=== PATIENT | female | born 1970 | race Caucasian/White ===

== ENCOUNTER → 2019-03-28 | Outpatient (CLI) | payer BC, SELFPAY ==
[~2019-03-28] MED LIST: SYNT100T PO
--- NOTE | 2019-03-28 14:26 | RADONC ---
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 Status post treatment in 2004, including surgery, chemotherapy and radiation. She now has evidence of painful bone metastases, as well as subcutaneous metastasis and probable liver metastasis. She is referred for evaluation of local regional palliative radiotherapy to the left acetabular region and the proximal femur for control of pain and hopefully to prevent a future pathologic fracture. STAGE: IV ICD-10 CODE: C50.811; and C79.2. ECOG PERFORMANCE STATUS: 0. HISTORY OF PRESENT ILLNESS: The patient is a 48-year-old female whose history of this illness actually began back in 2004 when she was diagnosed as having a mixed lobular and ductal carcinoma involving the right breast. Initial staging studies revealed an abnormality of the right breast at the 6 o'clock position and at the 4 o'clock position. These areas were biopsied and shown to represent an infiltrating ductal carcinoma and lobular carcinoma. She completed her diagnostic studies and her tumors were noted to be located in multiple areas of the right breast, hence multiple overlapping areas (ICD-10 code 50.811). In 2004, she underwent a right mastectomy for a stage II B cancer with two separate lesions and DCIS, LCIS. Two positive lymph nodes were noted with extranodal extension into the axillary fat tissue, as well as positive deep margins. She underwent a prophylactic mastectomy involving the left breast. Thereafter, she was treated with aggressive chemotherapy and a year of Herceptin for her positive HER2/lyla status. She received radiation therapy postoperatively to the chest wall and presumably for peripheral lymphatics. She had also received Arimidex from October 2005 through April 2012. In a recent evaluation, multiple nodules were discovered in the scalp area, which the patient noticed. She had no other significant symptoms with the exception of some intermittent left hip pain, which has progressively worsened. The scalp nodule or at least one of the scalp nodules was removed and it was shown to be metastatic cancer consistent with her primary breast cancer. Her left hip pain progressed to the point where she is complaining of pain which can get as high as an 8/10. She saw Dr. Burroughs from orthopedics who did not feel the need to do immediate prophylactic stabilization surgically but recommended a course of palliative local regional radiotherapy. She thusly is referred today for evaluation of local regional palliative radiotherapy for her secondary neoplasm. which is metastatic to bone (ICD-10 code C79.51). PAST MEDICAL HEALTH: She had knee surgery in the past and bilateral mastectomy, see history of present illness. ALLERGIES: NO KNOWN DRUG ALLERGIES. MEDICATIONS: - Arimidex 1 mg tablet once daily - Synthroid 88 mcg tablets 1 tablet p.o. daily - Tramadol 50 mg tablets 1 tablet q.6 h as needed for pain - Tums orally as needed - vitamin D 50,000 international units capsules q. Week FAMILY HISTORY OF CANCER: She had a mother who was diagnosed with ovarian cancer and an aunt who was diagnosed with colon cancer. Her grandmother was also diagnosed with breast cancer. SOCIAL HISTORY: Alcohol social. Recreational drugs denied. Smoking history denied. 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 REVIEW OF SYSTEMS: Her primary symptom is clearly that of pain involving the left hip. Respiratory: Denies coughing, dyspnea, hemoptysis, hiccups, pleuritic pain or wheezing. Psychiatric: Denies delusions, hallucinations, depression, euphoria or major mood swings. Neurologic: Denies disorientation, dizziness, gait issues, headaches, insomnia, memory loss, neuropathy, motor dysfunction, paralysis, seizures, sensory problems or strokes. Neck: Denies masses, muscle weakness, pain, decrease in range of motion or swelling. Musculoskeletal: Denies arthritis but she does have severe left hip pain, which is intensifying. She denies muscle weakness but decreased range of motion involving the left lower extremity. Integumentary: Denies alopecia, blisters, bruising, dry skin, facial burning, difficulty with fingernails or toenails, photosensitivity, pruritus, rashes or urticaria. Head: Denies alopecia. Genitourinary: Denies dysuria, frequency, genital masses, hematuria, incontinence, nocturia, renal stone disease, sexual dysfunction, urgency, change in urine color, vaginal discharge or bleeding, vaginal spotting. Gastrointestinal: Denies changes in bowel habits, constipation, diarrhea. She does have heartburn and dyspepsia for which at times she will take at Tums. She denies hematemesis, hematochezia, hemorrhoids, melena, GI bleeding. nausea. She does complain of pain in the left hip. Denies early satiety or vomiting. HEENT: Denies ear pain, epistaxis, esophagitis, hearing issues, mouth dryness, oral bleeding, otitis, sinusitis, sputum production, stomatitis or alteration of taste. She also denies tinnitus. Endocrine: Denies diabetes or hot flashes. She is on thyroid supplementation. Constitutional: She complains of some fatigue but denies any decrease in appetite, fever, lethargy, significant malaise, night sweats, rigors, chills or recent weight change. Cardiovascular: She denies arrhythmias, chest pain, dyspnea, edema, orthopnea or palpitations. Breasts: She is status post bilateral mastectomy. EXAMINATION FINDINGS: Vitals: Height 66, weight 192.8, temperature 98.4, pulse 81, respirations 18, systolic 127, diastolic 182, O2 saturation 96% on room air. HEENT: Normocephalic. EOMs intact. PERRLA. Fundi benign. Lymphatics: No palpable peripheral lymphadenopathy appreciated in the cervical, supraclavicular, axillary or inguinal lymph node chains. Lungs are clear to auscultation and percussion. Heart: Regular without murmurs. Abdomen: Without evidence of hepatomegaly, masses or deep abdominal tenderness. Extremities: Without cyanosis, clubbing or edema. She has percussive tenderness in the left periacetabular region. Neurologic: Examination grossly physiologic and nonfocal. IMPRESSION: 1. History of right breast carcinoma, now with evidence of metastases to the left hip with significant osteopenia around the periacetabular region. Plan of radiotherapy: Local regional palliative radiotherapy is recommended to hopefully prevent a pathologic fracture and to control pain. We recommend a course of approximately 3000 cGy administered in 10 fractions. Prior to treatment delivery, localization will be accomplished upon our CT simulator and treatment portals defined by the use of multi leaf collimators. The indications, possible side effects, as well as alternatives to radiotherapy have been explained in detail to the patient and her , who is in attendance at this consultation. They understand and are willing to proceed as outlined. Thank you for referring this very fine patient to us and allowing us the opportunity of participation in her overall management. ALMAS
== END ==
LOC: M ONCR 10:36
PROVIDERS: ATTEND Radiology Radiation Oncology
DX: C50.811 Malignant neoplasm of overlapping sites of right female breast (principal); C79.2 Secondary malignant neoplasm of skin

== ENCOUNTER 2019-04-16 14:48 | Outpatient (RCR) | payer BC ==
--- NOTE | 2019-04-07 07:54 | RADONC ---
RADIATION ONCOLOGY SIMULATION NOTE DATE: 04/03/2019 CHART NUMBER: [id number] Ms. Solis was taken to the CT scan for CT simulation of her left hip field. CT was accomplished without difficulty or discomfort. Radiation treatment planning is underway and radiation treatments are scheduled to begin on Sunday. An immobilization device was created without difficulty or discomfort. It will be used throughout the course of treatment. I was physically present throughout the course of CT simulation. Dr. Parikh in our department had applied for insurance authorization for treatment, which came through this morning at approximately 9 o'clock. I contacted the patient and scheduled her for simulation immediately this afternoon so that radiation would not be unduly delayed.
--- NOTE | 2019-04-08 10:45 | RADONC ---
RADIATION ONCOLOGY PROGRESS NOTE DATE: 04/07/2019 CHART NUMBER: [id number] Ms. Solis was taken to linear accelerator today for her first fraction of radiation to her left hip. It was tolerated without difficulty or discomfort. REVIEW OF SYSTEMS: The patient's review of systems continues to be positive for left hip pain, but is otherwise noncontributory. She denies nausea, vomiting, fevers, chills, night sweats, diplopia, headaches, anxiety or depression, anorexia, weight loss, visual disturbances, chest pain, urinary or bowel difficulties, bone pain, or neurological problems. PHYSICAL EXAMINATION: Clearly the patient's skin showed no evidence of radiation change present as this was her first fraction of treatment. Her physical exam also is otherwise unchanged. Ms. Solis tolerated her treatment well and radiation will continue as scheduled.
--- NOTE | 2019-04-16 06:31 | RADONC ---
RADIATION ONCOLOGY PROGRESS NOTE DATE: 04/14/2019 CHART #: [id number] Ms. Solis is presently at a dose of 1800 cGy to her left hip and is tolerating treatments quite well at this point with no difficulties related to her radiation therapy. She has no increased bone pain or other problems. REVIEW OF SYSTEMS: The patient's review of systems is noncontributory. Denies nausea, vomiting, fevers, chills, night sweats, diplopia, headaches, anxiety or depression, anorexia, weight loss, visual disturbances, chest pain, urinary or bowel difficulties, bone pain, or neurological problems. PHYSICAL EXAMINATION: The patient's skin is in good condition with no evidence of radiation change present. There is no moist or dry desquamation. The remainder of her physical exam remains unchanged. Ms. Solis is tolerating treatments quite well and radiation will continue as scheduled.
== END 2019-04-19 ==
LOC: M ONCR 14:48
PROVIDERS: ATTEND Radiology Radiation Oncology
DX: C79.51 Secondary malignant neoplasm of bone (principal)

== ENCOUNTER 2019-04-22 07:50 | Outpatient (RCR) | payer BC ==
--- NOTE | 2019-04-22 09:18 | RADONC ---
RADIATION ONCOLOGY TREATMENT SUMMARY DATE: 04/22/2019 DIAGNOSIS: Metastatic breast CA. HISTORY OF PRESENT ILLNESS: Ms. Solis is a 48-year-old, pleasant female, who has a diagnosis of infiltrating ductal carcinoma of the right breast Stage II A in April 2005. She had ER positive, HER2 positive breast cancer. She was treated with chemotherapy and then later she had mastectomy in 2016. She developed metastatic disease in the left femur and started palliative radiation therapy to the left femur. So far, she completed palliative radiation therapy with dose of 3000 cGy in 10 fractions. Her treatment was uneventful. She tolerated treatment without any significant side effect. Her pain scale at this time is 0, without any medication. She was advised continued therapy with the physicians involved and she was also to return here for followup.
== END 2019-05-20 ==
LOC: M ONCR 07:50
PROVIDERS: ATTEND Radiology Radiation Oncology
DX: C79.51 Secondary malignant neoplasm of bone (principal)

== ENCOUNTER → 2019-05-30 | Outpatient (CLI) | payer BC, SELFPAY ==
--- NOTE | 2019-06-02 16:29 | RADONC ---
RADIATION ONCOLOGY FOLLOWUP NOTE DATE: 05/30/2019 CHART NUMBER: [id number] DIAGNOSIS: Right breast cancer. STAGE: IV, metastatic. ECOG PERFORMANCE STATUS: 0 FOLLOWUP NOTE: Ms. Solis is a very pleasant 48-year-old white female with the diagnosis of metastatic breast cancer who is presenting to us today for routine followup visit 1 month post completion of palliative radiation therapy to her left hip. The patient presents today reporting that she is doing quite well with no complaints at this time related to her radiation therapy or disease. She has no urinary or bowel difficulties and no bone pain at this time. Her skin has healed nicely. REVIEW OF SYSTEMS: The patient's review of systems is noncontributory. Denies nausea, vomiting, fevers, chills, night sweats, diplopia, headaches, anxiety or depression, anorexia, weight loss, visual disturbances, chest pain, urinary or bowel difficulties, bone pain, or neurological problems. PHYSICAL EXAMINATION: The patient's skin shows some tanning present but overall is in good condition. The remainder of her physical exam remains unchanged. Ms. Solis has tolerated treatments quite well and radiation will continue as scheduled. The patient is being followed closely by her medical oncologist, Dr. Hernandez, and is being seen on a weekly basis. In light of that, I am discharging her from our followup except on a p.r.n. basis. cc: Burton Hernandez MD
== END ==
LOC: M ONCR 11:13
PROVIDERS: ATTEND Radiology Radiation Oncology
DX: Z08 Encounter for follow-up examination after completed treatment for malignant neoplasm (principal); C50.811 Malignant neoplasm of overlapping sites of right female breast; C79.51 Secondary malignant neoplasm of bone

== ENCOUNTER → 2020-09-21 | Outpatient (CLI) | payer BC ==
[~2020-09-21] MED LIST changes: +B-COTAB10 PO; +CALC1TAB63 PO; +CALTAB PO; +LETR2.5T2 PO; +LEVO100T5 PO; +XALA0.007 OP
--- NOTE | 2020-09-22 11:58 | ECHO ---
DATE OF PROCEDURE: 09/21/2020 Age: 49 Gender: Female Height: 66 inches Weight: 195 pounds Body surface area: 1.98 m2 PATIENT LOCATION: Outpatient. REFERRING PHYSICIAN: Jaylon Jones M.D. INDICATION: Potentially cardiotoxic chemotherapy. MEASUREMENTS: 2D Measurements: RV 3.2 cm LV 3.7 cm Septum 1.1 cm Posterior wall 1.1 cm Aortic Root 3.2 cm LA 3.6 cm LVEF 65% Doppler Measurements: AV 1.08 m/s LVOT 0.8 m/s LVOT diameter 2.0 cm MV-E 82, A 63, E/A ratio 1.3 Early mitral deceleration time 148 msec E prime medial 5.9, A prime medial 9, E prime lateral 7.3 Average E/E prime ratio 12.4/PCWP 17.3 mmHg PV Could not be visualized well RVSP 21 mmHg IVC 1.7 cm COMMENTS: Normal sinus rhythm without intraventricular conduction disturbance. Slightly challenging study in light of the patients body habitus, but diagnostically useful information was still obtained. M-mode and two-dimensional echocardiography was performed with pulse, continuous wave, color flow, and tissue Doppler studies. Normal left ventricular size, wall thickness, and wall motion. Normal left atrial size and Doppler assessment of LV diastolic function and estimated mean left atrial pressure. Normal right heart chamber sizes and motion and estimated pulmonary arterial pressure. Normal IVC size and collapse against an elevated central venous pressure. Normal aortic dimensions. Three equal size aortic cusps with no stenosis or insufficiency. Normal appearing mitral valve apparatus and leaflet excursion with no posterior systolic buckling. Very mild posterior mitral insufficiency (physiologic). Normal appearing tricuspid valve with trace insufficiency (physiologic). No apparent intracardiac mass or pericardial effusion. MTDD
== END ==
LOC: M CARPUL 11:10
PROVIDERS: ATTEND Internal Medicine Hematology & Oncology
DX: C50.919 Malignant neoplasm of unspecified site of unspecified female breast (principal)

== ENCOUNTER → 2020-12-20 | Outpatient (CLI) | payer BC ==
[~2020-12-20] MED LIST changes: +PROC10TA5 PO
== END ==
LOC: M CARPUL 11:37
PROVIDERS: ATTEND Internal Medicine Medical Oncology
DX: C50.811 Malignant neoplasm of overlapping sites of right female breast (principal); Z85.3 Personal history of malignant neoplasm of breast; I35.0 Nonrheumatic aortic (valve) stenosis

== ENCOUNTER → 2021-03-22 | Outpatient (CLI) | payer BC ==
[~2021-03-22] MED LIST changes: -PROC10TA5 PO
--- NOTE | 2021-03-22 21:40 | ECHO ---
ECHOCARDIOGRAM DATE OF PROCEDURE: 03/22/2021 Age: Gender: Height: 168 cm Weight: 92 kg REFERRING PHYSICIAN: Dr. Bruton Hernandez INDICATION: Chemotherapy, breast cancer. MEASUREMENTS: IVS 1.0 LV 5.0 LVPW 1.0 LA - 3.2 Aorta 3.6 Mitral E-wave velocity 76, A wave 57 E prime septal 7.6 E prime lateral 9.5 FINDINGS: The study is of acceptable technical quality. Underlying sinus rhythm. Significant attenuation noted from breast implants. Left ventricle is normal size and normal systolic function with estimated EF 60%-65%. I do not appreciate any segmental wall motion abnormalities. Right ventricle also has normal size and systolic function. Both atria appear normal. Aortic, mitral, tricuspid, and pulmonic valves were all reasonably well seen and appear normal. No pericardial effusion is noted. Inferior vena cava is normal size and appropriately collapses with inspiration. Aortic root, visualized segment of aortic arch, and abdominal aorta all appear normal. DOPPLER INTERROGATION: Reveals competent aortic valve. There is trace mitral, trace tricuspid, and trace pulmonic insufficiency. Calculated pulmonary artery pressure is within normal limits.. Mitral inflow pattern and tissue Doppler imaging of mitral annulus revealed probably normal diastolic function, even though tissue Doppler velocities are mildly reduced. CONCLUSIONS: 1. Study is of acceptable technical quality. Underlying sinus rhythm. 2. Normal LV size with normal LV systolic and probably also diastolic function. 3. No significant valvular disease. 4. Normal central venous pressure and normal pulmonary artery pressure.
== END ==
LOC: M CARPUL 13:41
PROVIDERS: ATTEND Internal Medicine Medical Oncology
DX: C50.811 Malignant neoplasm of overlapping sites of right female breast (principal); Z85.3 Personal history of malignant neoplasm of breast

== ENCOUNTER → 2021-04-01 | Outpatient (CLI) | payer BC ==
--- NOTE | 2021-04-01 15:27 | RADONC.CN ---
Radiation Oncology Hx/Consult Radiation Oncology Consult Date of Service: Apr 01, 2021 Pt Identifier Yessenia Solis is a 50 year old female with bone-predominant metastatic ER/CT- HER2+ breast cancer, originally diagnosed in 2019, currently on herceptin/perjeta. She is seen today for concern of recrudescent scalp lesions concerning for metastases, one of which on the vertex scalp was recently biopsied and proven mBC. Similar scalp lesions heralded her metastatic progression in 2019. She is seen for consideration of RT and a discussion of next steps in management. Diagnosis/Treatment History Oncologic History Patient was diagnosed with right breast cancer in 2004 stage IIB, 2 LN+ LISA+ ER/CT/HER2+ She had mastectomy, chemotherapy and PMRT. She completed 6 years of Arimidex in 2011. In 2018 she noted the development of small lumps on her scalp, biopsy was positive for ER/CT- HER2+ breast cancer. She also had left hip pain contemporaneously and was found on staging imaging to have bone metastases, including in the painful hip. She received 30 Gy in 10 fractions palliative RT to the left hip 04/07/19-04/22/19. She was started on taxol/herceptin/perjeta and her scalp lesions subsided. 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 In September 2019 she had left hip arthroplasty. In November 2020 she had negative MRI brain, cervical spine MRI which showed largely stable appearing metastases, and a bone scan which demonstrated improvement in uptake compared to May 2019 study. In January 2021 she noted recrudescent scalp lesions, which were similar to those that heralded her metastatic progression in 2019. In February 2021 she had biopsy of a left parietal scalp lesion which was only a mole, and another biopsy of a lesion on the vertex scalp which returned metastatic breast cancer. She then underwent a repeat bone scan with stable uptake in the sternum and left clavicle as well as conventional CT scans which did not demonstrate progression in any visceral site. She did also have MRI T and L-S spine for concern of some neuropathic symptoms which showed multilevel metastatic disease, some with increased STIR signal suggestive of active lesions NB T12 spinous process, L2 body and sacrum. Interval History Yessenia notes that she has discovered several additional small cutaneous nodules on the scalp. Unsure if they have grown since detection. She has no bone pain at this time. She has preserved appetite and energy. Past Medical History: Hypothyroidism Past Surgical History: BL hip replacements Family History: Mother ovarian cancer Social History: Never smoker Does not currently drink Allergies / Meds Allergies: Coded Allergies: No Known Allergies (Unverified , 05/28/20) Home Meds Reported Medications Latanoprost (Xalatan) 0.005% 2.5ML Drops, 1 DROP OP QPM for 30 Days, #3 ML 02/20/20 Vitamin B Complex/Folic Acid (B-Complex Tablet) 0.4 Mg Tablet, 1 TAB PO DAILY for 30 Days, #30 TAB 02/20/20 Calcium Carb/D3/Magnesium/Zinc (Guilherme Mag Zinc-D Tablet) 1 Each Tablet, 1 TAB PO, TAB 02/20/20 Levothyroxine Sodium (Synthroid) 100 Mcg Tablet, 1 TAB PO DAILY for 30 Days, #30 TAB 03/28/19 Discontinued Scripts Calcium Carbonate/Vitamin D3 (Calcium 600-Vit D3 400 Tablet) 1 Each Tablet, 2 TAB PO DAILY for 30 Days, #60 TAB 5 Refills Prov:ISSA HOOD MD 04/08/20 Letrozole (Letrozole) 2.5 Mg Tablet, 1 TAB PO DAILY for 90 Days, #90 TAB 3 Refills Prov:ISSA HOOD MD 03/19/20 Review of Systems Constitutional: Denies: Fatigue, Weight Loss Eyes: Denies: Pain HEENT: Denies: Head Aches Skin: Reports: Lesions Pulmonary: Denies: Dyspnea Cardiovascular: Denies: Chest Pain Gastrointestinal: Denies: Abdominal Pain Musculoskeletal: Denies: Neck pain, Back pain Neurological: Denies: Weakness, Numbness Psych: Reports: Mood Normal Vital Signs Ht 66" Wt 200 lbs BMI 32 T 97.5 P 83 RR 16 BP 138/82 O2 100% Pain 0 Fatigue 0 General Exam: Alert, Cooperative, No Acute Distress Eye Exam: PERRLA, EOMI ENT EXAM: Other ENT (On the vertex scalp there is a healed biopsy site, no surounding nodularity. On the left parietal scalp there is a healed biopsy site, inferior to this there is a 0.2 cm raised lesion, firm/nontender. In the inferior midline occipital region there is another 0.3 cm similar nodular lesion firm/nontender. On the right lateral scalp above the right ear there is a 3rd like lesion 0.3 cm firm/non-tender) Neck Exam: Supple; Negative: Lymphadenopathy Chest Exam: Clear to auscultation Heart Exam: Rate Normal Abdomen Exam: Soft Extremity Exam: Negative: Edema Neuro Exam: Normal Gait, Normal Speech, Cranial Nerves 3-12 NL Psych Exam: Mental status NL Diagnostic and Laboratory Diagnostic Review Radiologic images, relevant labs and pathology reports were personally reviewed and discussed with Ms. Solis. Assessment and Plan Impression Ms. Solis is a 50 year old female with a history of bone-predominant metastatic ER/CT- HER2+ breast cancer, originally diagnosed in 2019, currently on herceptin/perjeta. She is seen today for concern of recrudescent scalp lesions concerning for metastases, one of which on the vertex scalp was recently biopsied and proven mBC. Similar scalp lesions heralded her metastatic progression in 2019. She is seen for consideration of RT and a discussion of next steps in management. Stage Breast cancer stage IV Performance Status ECOG 0 Plan We had an extensive discussion with Ms. Solis regarding the diagnosis at hand and available therapeutic options. I reviewed her recent imaging; the bone scan seems to under-represent the extent of disease evident on the recent MRIs of the spine. Whether this represents that the lesions are quiescent on systemic therapy, or merely non-blastic in nature is an open question. I am concerned that there is increased soft tissue signal in some of the spinal lesions, this generally means active cancer. With respect to the body CT scans recently done, she does not appear to have any disease evidence in visceral organs. With respect to the biopsy-proven vertex scalp lesion, other similar scalp lesions she brought to my attention today, and suggestion of active metastatic disease in the thoraco-lumbar spine it is likely that her situation is district representative of multifocal progression on herceptin/perjeta, which if proven would necessitate a change in systemic therapy, possibly addition of cytotoxic chemo to halt progression. If there is indeed multifocal progression, then I would not advocate for any RT at this time, rather I would reserve the option for sites of symptomatic progression. To ascertain whether she has active disease in the bone or elsewhere, I will obtain a PET-CT and call her to discuss the result. On the off chance that the PET-CT is negative, then she can continue herceptin/perjeta until more marked progression, even in this scenario, I would not advocate for RT to the scalp as the lesions there are unimpressive and not bothersome. If they were to grow further or cause her a burden, then we could palliate them with RT easily. After discussing the risks, benefits and alternatives to radiation therapy, Ms. Solis was amenable to pursuing a PET-CT to complete restaging. All questions were answered to the patient's satisfaction. We instructed the patient that if there were any questions,concerns or changes in clinical status in the interim to contact us. Recommendations PET-CT to assess metabolic tumor burden/determine whether progression is widespread in bone No RT at this time Will call her with results and forward results to medical oncology @ [facility] Billing Statement Total time of [46] minutes was spent preparing for the visit [3], obtaining HPI [8], examining the patient [6], reviewing diagnostic tests [10], discussing management options [10], coordinating care [2], and writing this note [7]. JEFE REES MD Apr 01, 2021 15:25
== END ==
LOC: M ONCR 12:54
PROVIDERS: ATTEND General Practice
DX: C50.911 Malignant neoplasm of unspecified site of right female breast (principal); C79.51 Secondary malignant neoplasm of bone; Z92.21 Personal history of antineoplastic chemotherapy; Z92.3 Personal history of irradiation; Z79.899 Other long term (current) drug therapy

== ENCOUNTER → 2021-04-18 | Outpatient (CLI) | payer BC ==
[~2021-04-18] MED LIST changes: +PROC10TA5 PO
== END ==
LOC: M PLARAD 14:01
PROVIDERS: ATTEND General Practice
DX: C50.811 Malignant neoplasm of overlapping sites of right female breast (principal); L98.9 Disorder of the skin and subcutaneous tissue, unspecified; R59.9 Enlarged lymph nodes, unspecified

== ENCOUNTER → 2021-05-25 | Outpatient (CLI) | payer BC ==
[~2021-05-25] MED LIST changes: +PROC10TA4 PO; -PROC10TA5 PO
--- NOTE | 2021-05-25 22:42 | ECHO ---
ECHOCARDIOGRAM DATE OF PROCEDURE: 05/25/2021 Age: 50 Gender: Female Height: 168 cm Weight: 89 kg REFERRING PHYSICIAN: Dr. Burton Hernandez INDICATION: Chemotherapy that may affect the heart. 2D MEASUREMENTS: LVOT 2.1 cm Ventricular septum 0.80 cm Posterior wall 0.71 cm Left ventricle diastole 4.9 cm Left ventricle systole 3.2 cm Aortic root 3.5 cm Left atrium 3.4 cm Proximal ascending aorta 3.2 cm Left atrial volume index 25 Doppler Measurements: No aortic regurgitation Aortic valve velocity 114 cm/s LVOT velocity 92.2 cm/s LVOT VTI 19.9 cm No mitral regurgitation Mitral E velocity 80.6 cm/s Mitral A velocity 77.1 cm/s Mitral deceleration time 144 msec Trace tricuspid regurgitation Trace pulmonic regurgitation Pulmonary artery acceleration time 120 m/s MITRAL ANNULAR TISSUE DOPPLER E prime lateral 10.4 cm/s, E prime septal 10.2 cm/s DESCRIPTION: Rhythm was sinus. This was a moderately technically difficult echocardiogram. This was a 2D, M-mode, color flow Doppler, and pulsed-wave Doppler examination and included mitral annular tissue Doppler. CONCLUSIONS: 1. Normal left ventricle size and wall thickness. Normal LV systolic function. No regional LV wall motion abnormalities. LVEF 65%-70% by visual assessment. Normal LV diastolic function. 2. Very mild aortic valve sclerosis of a 3-cusps aortic valve. No aortic regurgitation. 3. No pericardial effusion. 4. Otherwise normal echocardiogram Doppler findings.
== END ==
LOC: M CARPUL 10:37
PROVIDERS: ATTEND Internal Medicine Medical Oncology
DX: C50.811 Malignant neoplasm of overlapping sites of right female breast (principal)

== ENCOUNTER → 2021-07-11 | Outpatient (CLI) | payer BC ==
[~2021-07-11] MED LIST changes: -PROC10TA4 PO; +PROC10TA5 PO
== END ==
LOC: M PLARAD 07:36
PROVIDERS: ATTEND Internal Medicine Medical Oncology
DX: C50.811 Malignant neoplasm of overlapping sites of right female breast (principal)
CPT/HCPCS: 78816; A9552

== ENCOUNTER → 2021-08-11 | Outpatient (CLI) | payer BC | LOC: M CARPUL 08:43 | PROVIDERS: ATTEND Internal Medicine Medical Oncology | DX: Z85.3 Personal history of malignant neoplasm of breast (principal); C50.811 Malignant neoplasm of overlapping sites of right female breast ==

== ENCOUNTER → 2021-10-10 | Outpatient (CLI) | payer BC | LOC: M PLARAD 07:46 | PROVIDERS: ATTEND Internal Medicine Medical Oncology | DX: C50.811 Malignant neoplasm of overlapping sites of right female breast (principal); Z85.3 Personal history of malignant neoplasm of breast | CPT/HCPCS: 78816; A9552 ==

== ENCOUNTER → 2021-10-31 | Outpatient (CLI) | payer BC | LOC: M CARPUL 10:58 | PROVIDERS: ATTEND Internal Medicine Medical Oncology | DX: C50.811 Malignant neoplasm of overlapping sites of right female breast (principal) ==

== ENCOUNTER → 2022-02-08 | Outpatient (CLI) | payer BC | LOC: M CARPUL 07:41 | PROVIDERS: ATTEND Internal Medicine Medical Oncology | DX: C50.811 Malignant neoplasm of overlapping sites of right female breast (principal) ==

== ENCOUNTER → 2022-03-22 | Outpatient (REF) | payer BC | LOC: M LAB REF 16:44 | PROVIDERS: ATTEND Nurse Practitioner Family | DX: E03.9 Hypothyroidism, unspecified (principal) ==

== ENCOUNTER → 2022-05-04 | Outpatient (CLI) | payer BC | LOC: M CARPUL 11:41 | PROVIDERS: ATTEND Nurse Practitioner | DX: C50.811 Malignant neoplasm of overlapping sites of right female breast (principal); Z13.6 Encounter for screening for cardiovascular disorders ==

== ENCOUNTER → 2022-06-06 | Outpatient (REF) | payer BC ==
[2022-06-06 13:12] LABS: CHOLESTEROL RISK RATIO 3.72 (<5); HDL CHOLESTEROL 55.9 MG/DL (>40); LDL CHOLESTEROL 131.9 MG/DL (<100)
[2022-06-06 13:15] LABS: THYROID STIMULATING HORMONE 0.689 uIU/ML (0.55-4.78)
== END ==
LOC: M LAB REF 12:14
PROVIDERS: ATTEND Nurse Practitioner Family
DX: R79.89 Other specified abnormal findings of blood chemistry (principal); E03.9 Hypothyroidism, unspecified

== ENCOUNTER → 2022-07-27 | Outpatient (CLI) | payer BC | LOC: M CARPUL 15:31 | PROVIDERS: ATTEND Internal Medicine | DX: C50.811 Malignant neoplasm of overlapping sites of right female breast (principal); Z13.6 Encounter for screening for cardiovascular disorders ==

== ENCOUNTER → 2022-10-09 | Outpatient (REF) | payer BC ==
[2022-10-09 12:21] LABS: BASO # 0.1 10^3/uL (0.0-0.2); BASO % 0.9 % (0.0-1.0); EOS # 0.2 10^3/uL (0.0-0.5); EOS % 3.9 % (0.0-3.0); HEMATOCRIT 37.6 % (36.0-47.0); HEMOGLOBIN 12.5 g/dl (12.0-15.5); LYMPH # 1.1 10^3/uL (1.5-5.0); LYMPH % 21.2 % (24.0-44.0); MEAN CORPUSCULAR HEMOGLOBIN 30.5 pg (27.0-33.0); MEAN CORPUSCULAR HGB CONC 33.2 g/dl (32.0-36.5); MEAN CORPUSCULAR VOLUME 91.7 fl (80.0-96.0); MONO # 0.6 10^3/uL (0.0-0.8); MONO % 10.3 % (2.0-8.0); NEUTROPHILS # 3.4 10^3/uL (1.5-8.5); NEUTROPHILS % 63.3 % (36.0-66.0); PLATELET COUNT, AUTOMATED 152 10^3/uL (150-450); WHITE BLOOD COUNT 5.3 10^3/uL (4.0-10.0)
[2022-10-09 12:39] LABS: HEMOGLOBIN A1c 5.6 % (4.0-6.0)
[2022-10-09 12:49] LABS: ALBUMIN 3.4 G/DL (3.2-5.2); ALKALINE PHOSPHATASE 144 U/L (46-116); ALT/SGPT 51 U/L (7.0-40); AST/SGOT 65 U/L (<34); BILIRUBIN,TOTAL 0.9 MG/DL (0.3-1.2); BLOOD UREA NITROGEN 13 MG/DL (9-23); CALCIUM LEVEL 9.5 MG/DL (8.5-10.1); CARBON DIOXIDE LEVEL 34 MMOL/L (20-31); CHLORIDE LEVEL 102 MMOL/L (98-107); CHOLESTEROL LEVEL 221 MG/DL (<200); CHOLESTEROL RISK RATIO 3.04 (<5); CREATININE FOR GFR 0.78 MG/DL (0.55-1.30); GLOMERULAR FILTRATION RATE > 60.0 (>51); GLUCOSE, FASTING 110 MG/DL (60-100); HDL CHOLESTEROL 72.6 MG/DL (>40); LDL CHOLESTEROL 129.4 MG/DL (<100); NON-HDL-C 148.4 MG/DL; POTASSIUM SERUM 4.3 MMOL/L (3.5-5.1); SODIUM LEVEL 141 MMOL/L (136-145); TOTAL PROTEIN 6.1 G/DL (5.7-8.2); TRIGLYCERIDES LEVEL 95 MG/DL (<150)
[2022-10-09 12:52] LABS: THYROID STIMULATING HORMONE 2.637 uIU/ML (0.55-4.78)
== END ==
LOC: M LAB REF 11:24
PROVIDERS: ATTEND Nurse Practitioner Family
DX: Z13.228 Encounter for screening for other metabolic disorders (principal)

== ENCOUNTER → 2022-12-13 | Outpatient (CLI) | payer BC | LOC: M CARPUL 14:20 | PROVIDERS: ATTEND Internal Medicine | DX: Z13.6 Encounter for screening for cardiovascular disorders (principal); C50.811 Malignant neoplasm of overlapping sites of right female breast ==

== ENCOUNTER → 2023-02-28 | Outpatient (CLI) | payer BC | LOC: M CARPUL 14:16 | PROVIDERS: ATTEND Internal Medicine | DX: C50.811 Malignant neoplasm of overlapping sites of right female breast (principal); Z13.6 Encounter for screening for cardiovascular disorders ==

== ENCOUNTER → 2023-03-28 | Outpatient (CLI) | payer BC | LOC: M ONCR 11:03 | PROVIDERS: ATTEND General Practice | DX: C77.2 Secondary and unspecified malignant neoplasm of intra-abdominal lymph nodes (principal); C50.811 Malignant neoplasm of overlapping sites of right female breast; Z71.2 Person consulting for explanation of examination or test findings; C79.51 Secondary malignant neoplasm of bone; Z79.811 Long term (current) use of aromatase inhibitors; Z79.899 Other long term (current) drug therapy; Z85.828 Personal history of other malignant neoplasm of skin; Z85.028 Personal history of other malignant neoplasm of stomach; Z90.11 Acquired absence of right breast and nipple; Z92.21 Personal history of antineoplastic chemotherapy; Z92.3 Personal history of irradiation ==

== ENCOUNTER → 2023-04-05 | Outpatient (REF) | payer BC ==
[2023-04-05 17:24] LABS: ALBUMIN 3.5 G/DL (3.2-5.2); ALKALINE PHOSPHATASE 126 U/L (46-116); ALT/SGPT 48 U/L (7.0-40); AST/SGOT 64 U/L (<34); BILIRUBIN,TOTAL 1.1 MG/DL (0.3-1.2); BLOOD UREA NITROGEN 12 MG/DL (9-23); CALCIUM LEVEL 8.7 MG/DL (8.5-10.1); CARBON DIOXIDE LEVEL 33 MMOL/L (20-31); CHLORIDE LEVEL 103 MMOL/L (98-107); CHOLESTEROL LEVEL 247 MG/DL (<200); CHOLESTEROL RISK RATIO 3.19 (<5); CREATININE FOR GFR 0.65 MG/DL (0.55-1.30); GLOMERULAR FILTRATION RATE > 60.0 (>51); GLUCOSE, FASTING 110 MG/DL (60-100); HDL CHOLESTEROL 77.4 MG/DL (>40); NON-HDL-C 169.6 MG/DL; POTASSIUM SERUM 4.3 MMOL/L (3.5-5.1); SODIUM LEVEL 139 MMOL/L (136-145); TOTAL PROTEIN 6.3 G/DL (5.7-8.2); TRIGLYCERIDES LEVEL 88 MG/DL (<150)
== END ==
LOC: M LAB REF 16:32
PROVIDERS: ATTEND Nurse Practitioner Family
DX: R79.89 Other specified abnormal findings of blood chemistry (principal); R74.8 Abnormal levels of other serum enzymes

== ENCOUNTER 2023-05-17 13:52 | Outpatient (RCR) | payer BC | END 2023-05-20 | LOC: M ONCR 13:52 | PROVIDERS: ATTEND General Practice | DX: Z51.0 Encounter for antineoplastic radiation therapy (principal); C77.2 Secondary and unspecified malignant neoplasm of intra-abdominal lymph nodes; C79.51 Secondary malignant neoplasm of bone; C50.811 Malignant neoplasm of overlapping sites of right female breast ==

== ENCOUNTER 2023-06-13 10:19 | Outpatient (RCR) | payer BC | END 2023-06-20 | LOC: M ONCR 10:19 | PROVIDERS: ATTEND General Practice | DX: Z51.0 Encounter for antineoplastic radiation therapy (principal); C50.811 Malignant neoplasm of overlapping sites of right female breast; C77.2 Secondary and unspecified malignant neoplasm of intra-abdominal lymph nodes; C79.51 Secondary malignant neoplasm of bone ==

== ENCOUNTER → 2023-06-20 | Outpatient (CLI) | payer BC | LOC: M PLAIMG 13:32 | PROVIDERS: ATTEND Physician Assistant Medical | DX: R04.0 Epistaxis (principal); R93.0 Abnormal findings on diagnostic imaging of skull and head, not elsewhere classified ==

== ENCOUNTER → 2023-06-28 | Outpatient (REF) | payer BC ==
[2023-06-28 12:42] LABS: CHOLESTEROL RISK RATIO 2.96 (<5); HDL CHOLESTEROL 70.9 MG/DL (>40); LDL CHOLESTEROL 120.9 MG/DL (<100); NON-HDL-C 139.1 MG/DL
== END ==
LOC: M LAB REF 11:35
PROVIDERS: ATTEND Nurse Practitioner Family
DX: R79.89 Other specified abnormal findings of blood chemistry (principal)

== ENCOUNTER → 2023-08-17 | Outpatient (CLI) | payer BC | LOC: M PLAIMG 09:51 | PROVIDERS: ATTEND Internal Medicine | DX: Z13.6 Encounter for screening for cardiovascular disorders (principal); C50.811 Malignant neoplasm of overlapping sites of right female breast ==

== ENCOUNTER → 2023-11-27 | Outpatient (CLI) | payer BC | LOC: M CARPUL 13:36 | PROVIDERS: ATTEND Internal Medicine | DX: C50.811 Malignant neoplasm of overlapping sites of right female breast (principal); Z85.3 Personal history of malignant neoplasm of breast ==

== ENCOUNTER → 2023-12-18 | Outpatient (CLI) | payer BC | LOC: M ONCR 14:19 | PROVIDERS: ATTEND General Practice | DX: C50.811 Malignant neoplasm of overlapping sites of right female breast (principal); C77.2 Secondary and unspecified malignant neoplasm of intra-abdominal lymph nodes; C79.51 Secondary malignant neoplasm of bone; Z79.899 Other long term (current) drug therapy; Z92.21 Personal history of antineoplastic chemotherapy; Z92.3 Personal history of irradiation ==

== ENCOUNTER → 2023-12-18 | Outpatient (REF) | payer BC ==
[2023-12-18 19:02] LABS: BASO # 0.1 10^3/uL (0.0-0.2); BASO % 0.6 % (0.0-1.0); EOS # 0.3 10^3/uL (0.0-0.5); EOS % 3.1 % (0.0-3.0); HEMATOCRIT 41.1 % (36.0-47.0); HEMOGLOBIN 13.3 g/dl (12.0-15.5); LYMPH # 2.1 10^3/uL (1.5-5.0); LYMPH % 21.1 % (24.0-44.0); MEAN CORPUSCULAR HEMOGLOBIN 30.6 pg (27.0-33.0); MEAN CORPUSCULAR HGB CONC 32.4 g/dl (32.0-36.5); MEAN CORPUSCULAR VOLUME 94.5 fl (80.0-96.0); MONO # 0.8 10^3/uL (0.0-0.8); MONO % 7.9 % (2.0-8.0); NEUTROPHILS # 6.6 10^3/uL (1.5-8.5); NEUTROPHILS % 66.8 % (36.0-66.0); PLATELET COUNT, AUTOMATED 182 10^3/uL (150-450); RED BLOOD COUNT 4.35 10^6/uL (4.00-5.40); WHITE BLOOD COUNT 9.8 10^3/uL (4.0-10.0)
[2023-12-18 19:19] LABS: ALBUMIN 3.4 G/DL (3.2-5.2); ALKALINE PHOSPHATASE 130 U/L (46-116); ALT/SGPT 37 U/L (7.0-40); AST/SGOT 45 U/L (<34); BILIRUBIN,TOTAL 1.2 MG/DL (0.3-1.2); BLOOD UREA NITROGEN 14 MG/DL (9-23); CALCIUM LEVEL 9.2 MG/DL (8.5-10.1); CARBON DIOXIDE LEVEL 33 MMOL/L (20-31); CHLORIDE LEVEL 98 MMOL/L (98-107); CHOLESTEROL LEVEL 228 MG/DL (<200); CREATININE FOR GFR 0.67 MG/DL (0.55-1.30); GLOMERULAR FILTRATION RATE > 60.0 (>51); GLUCOSE, FASTING 88 MG/DL (60-100); LDL CHOLESTEROL 139.8 MG/DL (<100); MAGNESIUM LEVEL 1.9 MG/DL (1.8-2.4); SODIUM LEVEL 138 MMOL/L (136-145); THYROID STIMULATING HORMONE 4.099 uIU/ML (0.55-4.78); TOTAL 25(OH) VITAMIN D 50.6 NG/ML (20.0-100.0); TRIGLYCERIDES LEVEL 96 MG/DL (<150)
[2023-12-18 20:19] LABS: HEMOGLOBIN A1c 5.5 % (4.0-6.0)
== END ==
LOC: M LAB REF 16:22
PROVIDERS: ATTEND Nurse Practitioner Family
DX: E66.3 Overweight (principal); E55.9 Vitamin D deficiency, unspecified

== ENCOUNTER → 2024-03-06 | Outpatient (CLI) | payer BC | LOC: M CARPUL 13:17 | PROVIDERS: ATTEND Internal Medicine | DX: C50.811 Malignant neoplasm of overlapping sites of right female breast (principal); Z85.3 Personal history of malignant neoplasm of breast; Z13.6 Encounter for screening for cardiovascular disorders ==

== ENCOUNTER → 2024-05-16 | Outpatient (CLI) | payer BC | LOC: M RAD 07:33 | PROVIDERS: ATTEND Internal Medicine | DX: C50.811 Malignant neoplasm of overlapping sites of right female breast (principal) | CPT/HCPCS: 78472; A9560 ==

== ENCOUNTER 2024-06-09 18:27 | Emergency (ER) | payer BC ==
[~2024-06-09] VITALS: Ht 167.6 cm; Wt 70.8 kg
[2024-06-09 22:25] LABS: BASO % 0.4 % (0.0-1.0); EOS % 0.3 % (0.0-3.0); HEMATOCRIT 36.1 % (36.0-47.0); HEMOGLOBIN 12.6 g/dl (12.0-15.5); LYMPH # 0.9 10^3/uL (1.5-5.0); LYMPH % 12.9 % (24.0-44.0); MEAN CORPUSCULAR HEMOGLOBIN 32.8 pg (27.0-33.0); MEAN CORPUSCULAR HGB CONC 34.9 g/dl (32.0-36.5); MONO # 0.7 10^3/uL (0.0-0.8); MONO % 9.7 % (2.0-8.0); NEUTROPHILS # 5.1 10^3/uL (1.5-8.5); NEUTROPHILS % 76.3 % (36.0-66.0); PLATELET COUNT, AUTOMATED 132 10^3/uL (150-450); RED BLOOD COUNT 3.84 10^6/uL (4.00-5.40); WHITE BLOOD COUNT 6.7 10^3/uL (4.0-10.0)
[2024-06-09 22:42] LABS: ALBUMIN 2.2 G/DL (3.2-5.2); ALKALINE PHOSPHATASE 116 U/L (35-104); ALT/SGPT 18 U/L (7.0-40); AST/SGOT 27 U/L (<34); BILIRUBIN,TOTAL 0.8 MG/DL (0.3-1.2); BLOOD UREA NITROGEN 16 MG/DL (9-23); CALCIUM LEVEL 8.1 MG/DL (8.5-10.1); CARBON DIOXIDE LEVEL 27 MMOL/L (20-31); CHLORIDE LEVEL 100 MMOL/L (98-107); CREATININE FOR GFR 0.92 MG/DL (0.55-1.30); GLOMERULAR FILTRATION RATE > 60.0 (>51); GLUCOSE, FASTING 124 MG/DL (60-100); SODIUM LEVEL 135 MMOL/L (136-145); TOTAL PROTEIN 5.5 G/DL (5.7-8.2)
[2024-06-09 23:39] LABS: INR 1.09; PARTIAL THROMBOPLASTIN TIME 32.1 SECONDS (24.8-34.2); PROTHROMBIN TIME 14.5 SECONDS (12.5-14.5)
[2024-06-09 23:54] VITALS: BP 92/54; TEMP 97.7; O2SAT 98
== END 2024-06-09 23:59 | disposition home or self-care (01) ==
LOC: M ED 18:27
DX: N93.9 Abnormal uterine and vaginal bleeding, unspecified (principal); Z85.3 Personal history of malignant neoplasm of breast; R18.8 Other ascites; Z79.899 Other long term (current) drug therapy

== ENCOUNTER → 2024-06-19 | Outpatient (CLI) | payer BC ==
[2024-06-19 10:35] VITALS: TEMP 98.2
[2024-06-19 11:40] VITALS: BP 105/53; O2SAT 99
== END ==
LOC: M IRPRO 10:30
PROVIDERS: ATTEND Internal Medicine
DX: C50.811 Malignant neoplasm of overlapping sites of right female breast (principal); R18.0 Malignant ascites

== ENCOUNTER → 2024-06-19 | Outpatient (CLI) | payer BC | LOC: M ONCR 14:03 | PROVIDERS: ATTEND General Practice | DX: C79.31 Secondary malignant neoplasm of brain (principal); R18.0 Malignant ascites; C77.2 Secondary and unspecified malignant neoplasm of intra-abdominal lymph nodes; C50.911 Malignant neoplasm of unspecified site of right female breast; C79.51 Secondary malignant neoplasm of bone; Z00-Z99 Factors influencing health status and contact with health services; Z79.899 Other long term (current) drug therapy; Z90.11 Acquired absence of right breast and nipple; Z92.21 Personal history of antineoplastic chemotherapy; Z92.3 Personal history of irradiation ==

== ENCOUNTER → 2024-06-27 | Outpatient (CLI) | payer BC ==
[2024-06-27 07:09] VITALS: TEMP 97.2
[2024-06-27 07:52] VITALS: BP 109/63; O2SAT 99
== END ==
LOC: M IRPRO 06:59
PROVIDERS: ATTEND Internal Medicine
DX: C50.811 Malignant neoplasm of overlapping sites of right female breast (principal); R18.0 Malignant ascites

== ENCOUNTER → 2024-06-30 | Outpatient (REF) | payer BC | LOC: M LAB REF 16:25 | PROVIDERS: ATTEND Nurse Practitioner Family | DX: R39.9 Unspecified symptoms and signs involving the genitourinary system (principal) ==

== ENCOUNTER → 2024-07-02 | Outpatient (REF) | payer BC ==
[2024-07-02 17:38] LABS: CHOLESTEROL RISK RATIO 3.6 (<5); HDL CHOLESTEROL 60.4 MG/DL (>40); MAGNESIUM LEVEL 2.2 MG/DL (1.8-2.4); NON-HDL-C 157.6 MG/DL
[2024-07-02 17:39] LABS: THYROID STIMULATING HORMONE 2.984 uIU/ML (0.55-4.78)
[2024-07-02 17:55] LABS: HEMOGLOBIN A1c 5.4 % (4.0-6.0)
== END ==
LOC: M LAB REF 16:59
PROVIDERS: ATTEND Nurse Practitioner Family
DX: E66.3 Overweight (principal)

== ENCOUNTER → 2024-07-04 | Outpatient (CLI) | payer BC ==
[2024-07-04 11:15] VITALS: TEMP 98.4
[2024-07-04 12:43] VITALS: BP 104/68; O2SAT 98
== END ==
LOC: M IRPRO 11:09
PROVIDERS: ATTEND Internal Medicine
DX: C50.811 Malignant neoplasm of overlapping sites of right female breast (principal); R18.0 Malignant ascites

== ENCOUNTER → 2024-07-11 | Outpatient (CLI) | payer BC ==
[2024-07-11 08:38] VITALS: TEMP 98.7
[2024-07-11 09:50] VITALS: BP 113/66; O2SAT 99
== END ==
LOC: M IRPRO 08:24
PROVIDERS: ATTEND Internal Medicine
DX: C50.811 Malignant neoplasm of overlapping sites of right female breast (principal); R18.0 Malignant ascites

== ENCOUNTER → 2024-07-18 | Outpatient (CLI) | payer BC ==
[2024-07-18 11:17] VITALS: TEMP 98.7
[2024-07-18 12:05] VITALS: BP 105/69; O2SAT 99
== END ==
LOC: M IRPRO 11:08
PROVIDERS: ATTEND Internal Medicine
DX: C50.811 Malignant neoplasm of overlapping sites of right female breast (principal); R18.0 Malignant ascites

== ENCOUNTER → 2024-07-25 | Outpatient (CLI) | payer BC ==
[2024-07-25 10:55] VITALS: TEMP 99.4
[2024-07-25 11:39] VITALS: BP 125/75; O2SAT 99
== END ==
LOC: M IRPRO 10:45
PROVIDERS: ATTEND Internal Medicine
DX: C50.811 Malignant neoplasm of overlapping sites of right female breast (principal); R18.0 Malignant ascites

== ENCOUNTER → 2024-08-01 | Outpatient (CLI) | payer BC ==
[2024-08-01 08:25] VITALS: TEMP 97.9
[2024-08-01 08:59] VITALS: BP 110/63; O2SAT 98
== END ==
LOC: M IRPRO 08:17
PROVIDERS: ATTEND Internal Medicine
DX: C50.811 Malignant neoplasm of overlapping sites of right female breast (principal); R18.0 Malignant ascites

== ENCOUNTER → 2024-08-08 | Outpatient (CLI) | payer BC ==
[2024-08-08 08:17] VITALS: TEMP 97.3
[2024-08-08 08:47] VITALS: BP 107/65; O2SAT 99
== END ==
LOC: M IRPRO 08:11
PROVIDERS: ATTEND Internal Medicine
DX: C50.811 Malignant neoplasm of overlapping sites of right female breast (principal); R18.0 Malignant ascites

== ENCOUNTER → 2024-08-15 | Outpatient (CLI) | payer BC ==
[2024-08-15 08:50] VITALS: TEMP 99.3
[2024-08-15 09:26] VITALS: BP 99/63; O2SAT 98
== END ==
LOC: M IRPRO 08:40
PROVIDERS: ATTEND Internal Medicine
DX: C50.811 Malignant neoplasm of overlapping sites of right female breast (principal); R18.0 Malignant ascites

== ENCOUNTER → 2024-08-20 | Outpatient (CLI) | payer BC ==
[2024-08-20 15:47] VITALS: TEMP 97.9
[2024-08-20 16:17] VITALS: BP 117/71; O2SAT 97
== END ==
LOC: M IRPRO 15:43
PROVIDERS: ATTEND Internal Medicine
DX: C50.811 Malignant neoplasm of overlapping sites of right female breast (principal); R18.0 Malignant ascites

== ENCOUNTER → 2024-08-29 | Outpatient (CLI) | payer BC ==
[2024-08-29 07:10] VITALS: TEMP 98.1
[2024-08-29 08:27] VITALS: BP 111/64; O2SAT 96
== END ==
LOC: M IRPRO 06:51
PROVIDERS: ATTEND Internal Medicine
DX: C50.811 Malignant neoplasm of overlapping sites of right female breast (principal); R18.0 Malignant ascites

== ENCOUNTER → 2024-09-04 | Outpatient (CLI) | payer BC ==
[2024-09-04 07:20] VITALS: TEMP 97.5
[2024-09-04 08:10] VITALS: BP 115/72; O2SAT 99
== END ==
LOC: M IRPRO 07:03
PROVIDERS: ATTEND Internal Medicine
DX: C50.811 Malignant neoplasm of overlapping sites of right female breast (principal); R18.0 Malignant ascites

== ENCOUNTER → 2024-09-08 | Outpatient (REF) | payer BC ==
[2024-09-08 15:39] LABS: CHOLESTEROL RISK RATIO 4.5 (<5); HDL CHOLESTEROL 36.4 MG/DL (>40); LDL CHOLESTEROL 99.8 MG/DL (<100); NON-HDL-C 127.6 MG/DL
[2024-09-08 15:41] LABS: THYROID STIMULATING HORMONE 7.863 uIU/ML (0.55-4.78)
== END ==
LOC: M LAB REF 14:33
PROVIDERS: ATTEND Nurse Practitioner Family
DX: E03.9 Hypothyroidism, unspecified (principal); R79.89 Other specified abnormal findings of blood chemistry

== ENCOUNTER → 2024-09-15 | Outpatient (CLI) | payer BC | LOC: M RAD 11:09 | PROVIDERS: ATTEND Nurse Practitioner Family | DX: R05.8 Other specified cough (principal) ==

== ENCOUNTER → 2024-09-15 | Outpatient (CLI) | payer BC ==
[2024-09-15 11:24] VITALS: TEMP 98.7
[2024-09-15 11:40] VITALS: BP 127/73; O2SAT 96
== END ==
LOC: M IRPRO 10:58
PROVIDERS: ATTEND Internal Medicine
DX: C50.811 Malignant neoplasm of overlapping sites of right female breast (principal); R18.0 Malignant ascites

== ENCOUNTER → 2024-09-17 | Outpatient (CLI) | payer BC ==
[~2024-09-17] MED LIST changes: +ALPH600C PO; +ATIV1TAB10 PO; +MIRT1TAB PO; +SPIR50TA4 PO; +SYNT125T PO
== END ==
LOC: M RAD 10:14
PROVIDERS: ATTEND Nurse Practitioner Family
DX: R05.8 Other specified cough (principal); J90 Pleural effusion, not elsewhere classified

== ENCOUNTER 2024-09-19 09:18 | Inpatient (IN) | payer BC ==
[~2024-09-19] VITALS: Ht 154.9 cm; Wt 66.6 kg
[~2024-09-19 09:18] MED LIST changes: -ALPH600C PO; -ATIV1TAB10 PO; -MIRT1TAB PO; -SPIR50TA4 PO; -SYNT125T PO
[2024-09-19 10:26] LABS: VENOUS BASE EXCESS 3.6 (-2.0-2.0); VENOUS HCO3 26.7 MMOL/L (23.0-27.0); VENOUS O2 SATURATION 95.6 % (60.0-80.0); VENOUS PARTIAL PRESSURE CO2 34.8 mmHg (38.0-50.0); VENOUS PARTIAL PRESSURE O2 82.6 mmHg (30.0-50.0); VENOUS PH 7.503 UNITS (7.330-7.430); VENOUS STANDARD HCO3 27.7 MMOL/L; VENOUS TOTAL CO2 27.8 MMOL/L (24.0-28.0)
[2024-09-19 10:32] LABS: HEMATOCRIT 27.4 % (36.0-47.0); HEMOGLOBIN 9.1 g/dl (12.0-15.5); MEAN CORPUSCULAR HGB CONC 33.2 g/dl (32.0-36.5); MEAN CORPUSCULAR VOLUME 108.3 fl (80.0-96.0); PLATELET COUNT, AUTOMATED 150 10^3/uL (150-450); RED BLOOD COUNT 2.53 10^6/uL (4.00-5.40)
[2024-09-19 10:42] LABS: WHITE BLOOD COUNT 35.9 10^3/uL (4.0-10.0)
[2024-09-19] MEDS: SODIUM CHLORIDE 0.9% INJ 10 ML SYR IV SCH (10:46)
[2024-09-19 10:53] LABS: INR 1.09; PARTIAL THROMBOPLASTIN TIME 27.5 SECONDS (24.8-34.2); PROTHROMBIN TIME 14.4 SECONDS (12.5-14.5)
[2024-09-19 10:57] LABS: CK-MB VALUE MASS < 1.0 NG/ML (<3.6)
[2024-09-19 10:58] LABS: AMYLASE 31 U/L (30-118)
[2024-09-19 10:59] LABS: ALBUMIN 2.1 G/DL (3.2-5.2); ALKALINE PHOSPHATASE 212 U/L (35-104); ALT/SGPT 18 U/L (7.0-40); AST/SGOT 46 U/L (<34); BILIRUBIN,DIRECT 0.3 MG/DL (<0.4); BILIRUBIN,TOTAL 0.9 MG/DL (0.3-1.2); BLOOD UREA NITROGEN 12 MG/DL (9-23); C REACTIVE PROTEIN QUANTITATIV 5.28 MG/DL (<1.0); CALCIUM LEVEL 8.1 MG/DL (8.5-10.1); CARBON DIOXIDE LEVEL 27 MMOL/L (20-31); CHLORIDE LEVEL 100 MMOL/L (98-107); CPK CREATINE PHOSPHOKINASE 32 U/L (34-145); CREATININE FOR GFR 0.89 MG/DL (0.55-1.30); GLOMERULAR FILTRATION RATE 76.5 (>51); GLUCOSE, FASTING 158 MG/DL (60-100); MB/CK RELATIVE INDEX 3.12 (< OR =4); POTASSIUM SERUM 3.4 MMOL/L (3.5-5.1); SODIUM LEVEL 137 MMOL/L (136-145); TOTAL PROTEIN 4.8 G/DL (5.7-8.2)
[2024-09-19] MEDS: NS (Normal Saline) 0.9% 2,010 ML in IV 1 EA IV ONE (10:59)
[2024-09-19] MEDS: PIPERACILLIN/TAZOBACTAM SOD 4.5 GM in DEXTROSE 5% (D5W) ADV/MINI-BAG 50 ML IV ONE (10:59)
[2024-09-19] MEDS: NS (Normal Saline) 0.9% 1,000 ML IV ONE (10:59)
[2024-09-19] MEDS ORDERED: SYNT125T PO (11:02)
[2024-09-19] MEDS ORDERED: SPIR50TA4 PO (11:02)
[2024-09-19] MEDS ORDERED: MIRT1TAB PO (11:02)
[2024-09-19] MEDS ORDERED: ALPH600C PO (11:02)
[2024-09-19] MEDS ORDERED: PROC10TA5 PO (11:02)
[2024-09-19] MEDS ORDERED: ATIV1TAB10 PO (11:02)
[2024-09-19] MEDS ORDERED: HOME MED LIST COMPLETE! XX SCH (11:05)
[2024-09-19 11:06] LABS: PROCALCITONIN 12.35 ng/ml
[2024-09-19 11:11] LABS: BASOPHILS 1 % (0-1); EOSINOPHILS 1 % (0-3); LYMPHOCYTES 1 % (16-44); METAMYELOCYTES 2 % (0-0); MONOCYTES 2 % (0-5); NEUTROPHILS 85 % (28-66)
[2024-09-19 11:12] LABS: ANISOCYTOSIS 1+; PLATELET ESTIMATE NORMAL (NORMAL)
[2024-09-19 11:13] LABS: POLYCHROMASIA 1+
[2024-09-19] MEDS ORDERED: ISOVUE-370 76% 100ML VIAL As Ordered ONE (11:39)
[2024-09-19 12:13] LABS: CK-MB VALUE MASS < 1.0 NG/ML (<3.6)
[2024-09-19 12:14] LABS: CPK CREATINE PHOSPHOKINASE 22 U/L (34-145); MB/CK RELATIVE INDEX 4.54 (< OR =4)
[2024-09-19 12:27] LABS: KETONE, URINE AUTO RFX NEGATIVE (NEGATIVE); LEUKOCYTE ESTERASE UR AUTO RFX NEGATIVE (NEGATIVE); NITRITE, URINE AUTO RFX NEGATIVE (NEGATIVE); RBC, URINE AUTO RFX 0 /HPF (0-3); SQUAM EPITHELIAL CELL UR AURFX 0 /HPF (0-6); WBC, URINE AUTO RFX 1 /HPF (0-3)
[2024-09-19] MEDS: SODIUM CHLORIDE 0.9% INJ 10 ML SYR IV PRN (13:15)
[2024-09-19 15:46] VITALS: BP 99/64; TEMP 96.7; O2SAT 94
[2024-09-19 15:50] VITALS: BP 92/62
[2024-09-19] MEDS ORDERED: MIDODRINE 5 MG TAB PO SCH (16:00)
[2024-09-19] MEDS: AZITHROMYCIN 250MG TABLET PO SCH (16:29)
[2024-09-19] MEDS: POTASSIUM CHLORIDE 10MEQ SR TABLET PO ONE (16:29)
[2024-09-19] MEDS: MIDODRINE 2.5 MG TAB PO SCH (16:29)
[2024-09-19] MEDS: VANCOMYCIN HCL 1,000 MG, VIAL MATE ADAPTER 1 EACH in NS 250 ML IV ONE (16:30)
[2024-09-19] MEDS: PANTOPRAZOLE 40MG TAB (PROTONIX) PO SCH (16:32)
[2024-09-19] MEDS: PIPERACILLIN/TAZOBACTAM SOD 4.5 GM in DEXTROSE 5% (D5W) ADV/MINI-BAG 50 ML IV SCH (17:42)
[2024-09-19 18:04] VITALS: BP 98/64
[2024-09-19 20:00] VITALS: TEMP 98.7
[2024-09-19 20:07] VITALS: BP 105/58; TEMP 98; O2SAT 95
[2024-09-19] MEDS: VANCOMYCIN HCL 1,000 MG, VIAL MATE ADAPTER 1 EACH in NS 250 ML IV SCH (20:59)
[2024-09-19] MEDS: HEPARIN SOD (PORCINE) 5000UNITS/ML 1ML VIAL/SYRINGE SC SCH (22:33)
[2024-09-19 23:56] VITALS: BP 100/61; TEMP 97.2; O2SAT 91
[2024-09-20] MEDS: SODIUM CHLORIDE 0.9% INJ 10 ML SYR IV PRN (00:56)
[2024-09-20 04:07] VITALS: BP 105/65; TEMP 98.1; O2SAT 94
[2024-09-20 07:26] LABS: HEMATOCRIT 26.8 % (36.0-47.0); HEMOGLOBIN 8.7 g/dl (12.0-15.5); MEAN CORPUSCULAR HEMOGLOBIN 35.8 pg (27.0-33.0); MEAN CORPUSCULAR HGB CONC 32.5 g/dl (32.0-36.5); MEAN CORPUSCULAR VOLUME 110.3 fl (80.0-96.0); PLATELET COUNT, AUTOMATED 178 10^3/uL (150-450); RED BLOOD COUNT 2.43 10^6/uL (4.00-5.40); WHITE BLOOD COUNT 21.7 10^3/uL (4.0-10.0)
[2024-09-20] MEDS ORDERED: PROCHLORPERAZINE 5MG TAB PO PRN (07:55)
[2024-09-20] MEDS ORDERED: LORazepam 0.5 MG TAB PO PRN (07:55)
[2024-09-20 08:01] LABS: BLOOD UREA NITROGEN 14 MG/DL (9-23); CALCIUM LEVEL 7.4 MG/DL (8.5-10.1); CARBON DIOXIDE LEVEL 28 MMOL/L (20-31); CHLORIDE LEVEL 107 MMOL/L (98-107); CREATININE FOR GFR 0.75 MG/DL (0.55-1.30); GLOMERULAR FILTRATION RATE > 90.0 (>51); GLUCOSE, FASTING 107 MG/DL (60-100); MAGNESIUM LEVEL 1.8 MG/DL (1.8-2.4); PHOSPHORUS LEVEL 2.7 MG/DL (2.5-4.9); POTASSIUM SERUM 3.8 MMOL/L (3.5-5.1); SODIUM LEVEL 144 MMOL/L (136-145)
[2024-09-20 08:42] VITALS: BP 106/57; O2SAT 94
[2024-09-20] MEDS: SODIUM CHLORIDE 0.9% INJ 10 ML SYR IV SCH (08:44)
[2024-09-20] MEDS: LEVOTHYROXINE 125MCG TABLET (0.125MG) PO SCH (10:56)
[2024-09-20] MEDS: DOXYCYCLINE HYCLATE 100MG TABLET PO SCH (10:58)
[2024-09-20] MEDS: CALCIUM CHLORIDE 10% 1 GM in D5W 100 ML IV ONE (11:48)
[2024-09-20 12:00] VITALS: BP 112/65; TEMP 98.9; O2SAT 96
[2024-09-20 16:19] VITALS: BP 110/64; TEMP 98.6; O2SAT 97
[2024-09-20 20:09] VITALS: BP 110/64; TEMP 98.1; O2SAT 94
[2024-09-20] MEDS: LATANOPROST 0.005% OPHTH SOLN 2.5 ML OU SCH (20:36)
[2024-09-20] MEDS: MIRTAZAPINE 7.5MG PER 1/2 TABLET PO SCH (20:36)
[2024-09-20 23:47] VITALS: BP 113/68; TEMP 99.5; O2SAT 95
[2024-09-21] VITALS (7 sets, daily range): BP systolic 96–121; BP diastolic 61–72; TEMP 98.2–99.5; O2SAT 93–97
[2024-09-21 05:48] LABS: BASO # 0.1 10^3/uL (0.0-0.2); BASO % 0.3 % (0.0-1.0); EOS # 0.3 10^3/uL (0.0-0.5); HEMATOCRIT 26.2 % (36.0-47.0); HEMOGLOBIN 8.4 g/dl (12.0-15.5); LYMPH # 1.1 10^3/uL (1.5-5.0); LYMPH % 6.6 % (24.0-44.0); MEAN CORPUSCULAR HGB CONC 32.1 g/dl (32.0-36.5); MEAN CORPUSCULAR VOLUME 109.2 fl (80.0-96.0); MONO # 0.9 10^3/uL (0.0-0.8); MONO % 5.3 % (2.0-8.0); NEUTROPHILS # 13.9 10^3/uL (1.5-8.5); NEUTROPHILS % 82.8 % (36.0-66.0); PLATELET COUNT, AUTOMATED 212 10^3/uL (150-450); WHITE BLOOD COUNT 16.8 10^3/uL (4.0-10.0)
[2024-09-21 06:16] LABS: CALCIUM LEVEL 7.3 MG/DL (8.5-10.1); CREATININE FOR GFR 0.79 MG/DL (0.55-1.30); GLOMERULAR FILTRATION RATE 88.3 (>51); MAGNESIUM LEVEL 1.7 MG/DL (1.8-2.4); POTASSIUM SERUM 3.3 MMOL/L (3.5-5.1)
[2024-09-21] MEDS ORDERED: CALCIUM CARBONATE 500 MG CHEW U/D PO PRN (07:00)
[2024-09-21] MEDS: POTASSIUM CHLORIDE 10MEQ SR TABLET PO SCH (08:31)
[2024-09-21] MEDS: MAG SULF 1GM/100ML (MAG RUN) 1 GM in IV 1 EA IV SCH (08:31)
[2024-09-22] VITALS (10 sets, daily range): BP systolic 110–125; BP diastolic 64–74; TEMP 98–99.3; O2SAT 91–98
[2024-09-22 05:15] LABS: BASO # 0.1 10^3/uL (0.0-0.2); BASO % 0.4 % (0.0-1.0); EOS # 0.3 10^3/uL (0.0-0.5); EOS % 1.7 % (0.0-3.0); HEMATOCRIT 27.4 % (36.0-47.0); HEMOGLOBIN 8.7 g/dl (12.0-15.5); LYMPH # 1.1 10^3/uL (1.5-5.0); LYMPH % 6.7 % (24.0-44.0); MEAN CORPUSCULAR HEMOGLOBIN 34.9 pg (27.0-33.0); MEAN CORPUSCULAR HGB CONC 31.8 g/dl (32.0-36.5); MONO # 0.9 10^3/uL (0.0-0.8); MONO % 5.5 % (2.0-8.0); NEUTROPHILS # 13.9 10^3/uL (1.5-8.5); NEUTROPHILS % 83.5 % (36.0-66.0); PLATELET COUNT, AUTOMATED 255 10^3/uL (150-450); RED BLOOD COUNT 2.49 10^6/uL (4.00-5.40); WHITE BLOOD COUNT 16.7 10^3/uL (4.0-10.0)
[2024-09-22 05:52] LABS: FERRITIN 554.5 NG/ML (7.3-270.7)
[2024-09-22 05:55] LABS: CALCIUM LEVEL 7.9 MG/DL (8.5-10.1); CREATININE FOR GFR 0.81 MG/DL (0.55-1.30); GLOMERULAR FILTRATION RATE 85.7 (>51); MAGNESIUM LEVEL 2.1 MG/DL (1.8-2.4); POTASSIUM SERUM 4.6 MMOL/L (3.5-5.1)
[2024-09-22 08:30] LABS: TOTAL PROTEIN 4.4 G/DL (5.7-8.2)
[2024-09-22] MEDS: SPIRONOLACTONE 50 MG TAB PO SCH (10:19)
[2024-09-22 13:26] LABS: PH BODY FLUID 7.588 UNITS (NOT ESTABLISHED); SOURCE, BODY FLUID pH PLEURAL
[2024-09-22] MEDS: ACETAMINOPHEN 325 MG TAB PO PRN (14:00)
[2024-09-22 14:08] LABS: PROCALCITONIN 6.61 ng/ml
[2024-09-22 15:08] LABS: LDH, BODY FLUID 188 U/L (NOT ESTABLISHED); SOURCE, BODY FLUID LDH PLEURAL
[2024-09-22 15:55] LABS: SOURCE, BODY FLUID TOT PROTEIN PLEURAL; TOTAL PROTEIN, BODY FLUID 2.5 G/DL (NOT ESTABLISHED)
[2024-09-22 17:38] LABS: URINE STREP PNEUMONIAE ANTIGEN NOT DETECTED (NOT DETECT)
[2024-09-23 00:30] VITALS: BP 127/78; TEMP 98.1; O2SAT 96
[2024-09-23 03:58] VITALS: BP 113/70; TEMP 99.1; O2SAT 94
[2024-09-23 04:45] LABS: BASO # 0.1 10^3/uL (0.0-0.2); BASO % 0.6 % (0.0-1.0); EOS # 0.3 10^3/uL (0.0-0.5); EOS % 1.9 % (0.0-3.0); HEMATOCRIT 28.1 % (36.0-47.0); HEMOGLOBIN 9.2 g/dl (12.0-15.5); LYMPH % 5.8 % (24.0-44.0); MEAN CORPUSCULAR HEMOGLOBIN 35.5 pg (27.0-33.0); MEAN CORPUSCULAR HGB CONC 32.7 g/dl (32.0-36.5); MEAN CORPUSCULAR VOLUME 108.5 fl (80.0-96.0); MONO # 0.9 10^3/uL (0.0-0.8); MONO % 5.4 % (2.0-8.0); NEUTROPHILS # 13.7 10^3/uL (1.5-8.5); NEUTROPHILS % 84.1 % (36.0-66.0); PLATELET COUNT, AUTOMATED 315 10^3/uL (150-450); RED BLOOD COUNT 2.59 10^6/uL (4.00-5.40); WHITE BLOOD COUNT 16.3 10^3/uL (4.0-10.0)
[2024-09-23 05:04] LABS: C REACTIVE PROTEIN QUANTITATIV 5.15 MG/DL (<1.0); CALCIUM LEVEL 8.1 MG/DL (8.5-10.1); CREATININE FOR GFR 0.85 MG/DL (0.55-1.30); GLOMERULAR FILTRATION RATE 80.9 (>51); POTASSIUM SERUM 4.6 MMOL/L (3.5-5.1)
[2024-09-23 05:12] LABS: PROCALCITONIN 3.52 ng/ml
[2024-09-23 07:37] VITALS: BP 108/55; TEMP 97.1; O2SAT 95
[2024-09-23 16:00] VITALS: BP 118/65; TEMP 98.6; O2SAT 96
[2024-09-23 20:01] VITALS: BP 108/60; TEMP 98.8; O2SAT 97
[2024-09-24] VITALS (7 sets, daily range): BP systolic 107–121; BP diastolic 62–69; TEMP 97.9–99.7; O2SAT 96–97
[2024-09-24 04:44] LABS: BASO # 0.1 10^3/uL (0.0-0.2); BASO % 0.7 % (0.0-1.0); EOS # 0.3 10^3/uL (0.0-0.5); EOS % 2.8 % (0.0-3.0); HEMATOCRIT 28.2 % (36.0-47.0); HEMOGLOBIN 9.2 g/dl (12.0-15.5); LYMPH # 0.9 10^3/uL (1.5-5.0); LYMPH % 7.2 % (24.0-44.0); MEAN CORPUSCULAR HEMOGLOBIN 35.4 pg (27.0-33.0); MEAN CORPUSCULAR HGB CONC 32.6 g/dl (32.0-36.5); MEAN CORPUSCULAR VOLUME 108.5 fl (80.0-96.0); MONO # 0.9 10^3/uL (0.0-0.8); MONO % 7.5 % (2.0-8.0); NEUTROPHILS # 9.7 10^3/uL (1.5-8.5); NEUTROPHILS % 79.9 % (36.0-66.0); PLATELET COUNT, AUTOMATED 323 10^3/uL (150-450); WHITE BLOOD COUNT 12.1 10^3/uL (4.0-10.0)
[2024-09-24 04:58] LABS: CALCIUM LEVEL 8.2 MG/DL (8.5-10.1); CREATININE FOR GFR 0.92 MG/DL (0.55-1.30); GLOMERULAR FILTRATION RATE 73.5 (>51); POTASSIUM SERUM 4.3 MMOL/L (3.5-5.1)
[2024-09-25 03:23] VITALS: BP 114/66; TEMP 99.2; O2SAT 97
[2024-09-25 05:30] LABS: BASO # 0.1 10^3/uL (0.0-0.2); BASO % 0.9 % (0.0-1.0); EOS # 0.4 10^3/uL (0.0-0.5); EOS % 3.2 % (0.0-3.0); HEMATOCRIT 28.3 % (36.0-47.0); HEMOGLOBIN 9.2 g/dl (12.0-15.5); LYMPH % 7.9 % (24.0-44.0); MEAN CORPUSCULAR HEMOGLOBIN 35.2 pg (27.0-33.0); MEAN CORPUSCULAR HGB CONC 32.5 g/dl (32.0-36.5); MEAN CORPUSCULAR VOLUME 108.4 fl (80.0-96.0); MONO # 1.1 10^3/uL (0.0-0.8); NEUTROPHILS # 9.6 10^3/uL (1.5-8.5); NEUTROPHILS % 77.1 % (36.0-66.0); PLATELET COUNT, AUTOMATED 336 10^3/uL (150-450); RED BLOOD COUNT 2.61 10^6/uL (4.00-5.40); WHITE BLOOD COUNT 12.4 10^3/uL (4.0-10.0)
[2024-09-25 05:57] LABS: CALCIUM LEVEL 8.3 MG/DL (8.5-10.1); CREATININE FOR GFR 0.85 MG/DL (0.55-1.30); GLOMERULAR FILTRATION RATE 80.4 (>51); POTASSIUM SERUM 4.3 MMOL/L (3.5-5.1)
[2024-09-25 07:43] VITALS: BP 125/68; TEMP 97.6; O2SAT 95
[2024-09-25 10:02] LABS: C REACTIVE PROTEIN QUANTITATIV 5.35 MG/DL (<1.0)
[2024-09-25 10:09] LABS: PROCALCITONIN 1.27 ng/ml
[2024-09-25] MEDS: LevoFLOXacin 750 MG TABLET PO ONE (10:19)
[2024-09-25 11:51] VITALS: BP 102/66
[2024-09-25 16:06] VITALS: BP_SYST 112; BP_SYST 146; BP_DIAS 78; TEMP 98.1; TEMP 98.8; O2SAT 90; O2SAT 97
[2024-09-25 19:51] VITALS: BP 108/66; TEMP 98.5; O2SAT 96
[2024-09-26 03:55] VITALS: BP 115/63; TEMP 98.9; O2SAT 97
[2024-09-26] MEDS: LevoFLOXacin 750 MG TABLET PO SCH (06:31)
[2024-09-26 07:42] VITALS: BP 102/63; TEMP 98.6; O2SAT 96
[2024-09-26] MEDS ORDERED: LEVO75TAB PO (11:42)
[2024-09-26 12:05] VITALS: BP 112/69
== END 2024-09-26 14:19 | disposition home or self-care (01) | DRG 720 ==
LOC: M ED 09:18 → M ED INP 14:19 → M PCU 15:36
PROVIDERS: ADMIT Student in an Organized Health Care Education/Training Program; ATTEND Student in an Organized Health Care Education/Training Program
PROC: 0W9B3ZX Drainage of Left Pleural Cavity, Percutaneous Approach, Diagnostic (ICD-10-PCS; principal; 2024-09-22 12:38)
PROC: 0W9G3ZZ Drainage of Peritoneal Cavity, Percutaneous Approach (ICD-10-PCS; 2024-09-23)
DX: A41.50 Gram-negative sepsis, unspecified (principal); R18.0 Malignant ascites; J91.0 Malignant pleural effusion; J18.9 Pneumonia, unspecified organism; C78.6 Secondary malignant neoplasm of retroperitoneum and peritoneum; E46 Unspecified protein-calorie malnutrition; E83.42 Hypomagnesemia; I24.89 Other forms of acute ischemic heart disease; E83.51 Hypocalcemia; C50.919 Malignant neoplasm of unspecified site of unspecified female breast; E87.6 Hypokalemia; J98.11 Atelectasis; K21.9 Gastro-esophageal reflux disease without esophagitis; R74.01 Elevation of levels of liver transaminase levels; Z90.13 Acquired absence of bilateral breasts and nipples; Z92.21 Personal history of antineoplastic chemotherapy; Z92.3 Personal history of irradiation; D63.0 Anemia in neoplastic disease; Z79.899 Other long term (current) drug therapy; Z79.890 Hormone replacement therapy; B96.1 Klebsiella pneumoniae [K. pneumoniae] as the cause of diseases classified elsewhere

== ENCOUNTER → 2024-09-29 | Outpatient (CLI) | payer BC ==
[~2024-09-29] MED LIST changes: +ALPH600C PO; +ATIV1TAB10 PO; +LEVO75TAB PO; +MIRT1TAB PO; +SPIR50TA4 PO; +SYNT125T PO
== END ==
LOC: M IRPRO 11:59
PROVIDERS: ATTEND Internal Medicine
DX: C50.811 Malignant neoplasm of overlapping sites of right female breast (principal); R18.0 Malignant ascites

== ENCOUNTER → 2024-10-03 | Outpatient (CLI) | payer BC ==
[~2024-10-03] MED LIST changes: -ALPH600C PO; +ALPH600C2 PO
[2024-10-03 11:03] LABS: BASO # 0.2 10^3/uL (0.0-0.2); EOS # 0.3 10^3/uL (0.0-0.5); EOS % 3.5 % (0.0-3.0); HEMATOCRIT 34.6 % (36.0-47.0); LYMPH # 0.8 10^3/uL (1.5-5.0); LYMPH % 9.1 % (24.0-44.0); MEAN CORPUSCULAR HEMOGLOBIN 34.3 pg (27.0-33.0); MEAN CORPUSCULAR HGB CONC 31.8 g/dl (32.0-36.5); MEAN CORPUSCULAR VOLUME 107.8 fl (80.0-96.0); MONO % 10.7 % (2.0-8.0); NEUTROPHILS # 6.6 10^3/uL (1.5-8.5); NEUTROPHILS % 72.9 % (36.0-66.0); PLATELET COUNT, AUTOMATED 216 10^3/uL (150-450); RED BLOOD COUNT 3.21 10^6/uL (4.00-5.40); WHITE BLOOD COUNT 9.1 10^3/uL (4.0-10.0)
== END ==
LOC: M LAB 09:15
PROVIDERS: ATTEND Student in an Organized Health Care Education/Training Program
DX: J18.8 Other pneumonia, unspecified organism (principal)

== ENCOUNTER → 2024-10-06 | Outpatient (CLI) | payer BC | LOC: M IRPRO 11:18 | PROVIDERS: ATTEND Internal Medicine | DX: C50.811 Malignant neoplasm of overlapping sites of right female breast (principal); R18.0 Malignant ascites ==

== ENCOUNTER → 2024-11-24 | Outpatient (CLI) | payer BC | LOC: M RAD 11:51 | PROVIDERS: ATTEND Internal Medicine | DX: C50.811 Malignant neoplasm of overlapping sites of right female breast (principal); R18.0 Malignant ascites; J90 Pleural effusion, not elsewhere classified; R91.8 Other nonspecific abnormal finding of lung field ==

== ENCOUNTER → 2024-11-28 | Outpatient (CLI) | payer BC ==
[2024-11-28 14:10] VITALS: TEMP 98.2
[2024-11-28 14:55] VITALS: BP 120/73; O2SAT 94
== END ==
LOC: M IRPRO 13:58
PROVIDERS: ATTEND Physician Assistant
DX: C50.811 Malignant neoplasm of overlapping sites of right female breast (principal); R18.0 Malignant ascites

== ENCOUNTER 2024-12-02 21:32 | Inpatient (IN) | payer BC ==
[~2024-12-02] VITALS: Ht 167.6 cm; Wt 56.3 kg
[2024-12-02 23:11] LABS: BASO # 0.1 10^3/uL (0.0-0.2); BASO % 0.6 % (0.0-1.0); EOS # 0.0 10^3/uL (0.0-0.5); EOS % 0.0 % (0.0-3.0); LYMPH # 1.0 10^3/uL (1.5-5.0); LYMPH % 12.1 % (24.0-44.0); MONO # 1.1 10^3/uL (0.0-0.8); MONO % 12.5 % (2.0-8.0); NEUTROPHILS # 6.4 10^3/uL (1.5-8.5); NEUTROPHILS % 74.3 % (36.0-66.0); PLATELET COUNT, AUTOMATED 189 10^3/uL (150-450)
[2024-12-02 23:29] LABS: INR 0.99
[2024-12-02] MEDS: NS (Normal Saline) 0.9% 1,000 ML IV ONE (23:33)
[2024-12-02 23:40] LABS: CPK CREATINE PHOSPHOKINASE 42 U/L (34-145)
[2024-12-02 23:41] LABS: ALT/SGPT 11 U/L (7.0-40); AST/SGOT 118 U/L (<34); CALCIUM LEVEL 8.3 MG/DL (8.5-10.1); CARBON DIOXIDE LEVEL 14 MMOL/L (20-31); CHLORIDE LEVEL 98 MMOL/L (98-107); CK-MB VALUE MASS < 1.0 NG/ML (<3.6); CREATININE FOR GFR 0.86 MG/DL (0.55-1.30); GLOMERULAR FILTRATION RATE 79.2 (>51); POTASSIUM SERUM 4.0 MMOL/L (3.5-5.1); SODIUM LEVEL 139 MMOL/L (136-145)
[2024-12-02] MEDS ORDERED: ISOVUE-370 76% 100 ML VIAL As Ordered ONE (23:55)
[2024-12-03 00:16] LABS: CK-MB VALUE MASS < 1.0 NG/ML (<3.6)
[2024-12-03 00:30] LABS: CPK CREATINE PHOSPHOKINASE 41 U/L (34-145)
[2024-12-03 00:58] LABS: VENOUS BASE EXCESS -12.9 (-2.0-2.0); VENOUS HCO3 11.7 MMOL/L (23.0-27.0); VENOUS O2 SATURATION 77.7 % (60.0-80.0); VENOUS PARTIAL PRESSURE CO2 24.2 mmHg (38.0-50.0); VENOUS PARTIAL PRESSURE O2 48.8 mmHg (30.0-50.0); VENOUS PH 7.302 UNITS (7.330-7.430); VENOUS STANDARD HCO3 14.1 MMOL/L; VENOUS TOTAL CO2 12.4 MMOL/L (24.0-28.0)
[2024-12-03 04:04] LABS: KETONE, URINE AUTO RFX 2+ mg/dL (NEGATIVE); LEUKOCYTE ESTERASE UR AUTO RFX NEGATIVE (NEGATIVE); MUCUS, URINE RFX SMALL (NEGATIVE); NITRITE, URINE AUTO RFX NEGATIVE (NEGATIVE); RBC, URINE AUTO RFX 0 /HPF (0-3); SQUAM EPITHELIAL CELL UR AURFX 0 /HPF (0-6); WBC, URINE AUTO RFX 2 /HPF (0-3)
[2024-12-03] MEDS ORDERED: ONDANSETRON 4MG ORAL DISINTEGRATING TAB PO PRN (04:15)
[2024-12-03] MEDS ORDERED: ACETAMINOPHEN 325 MG TAB PO PRN (04:15)
[2024-12-03 05:03] LABS: MAGNESIUM LEVEL 2.1 MG/DL (1.8-2.4)
[2024-12-03] MEDS: SODIUM BICARBONATE 150 MEQ in D5W 1,000 ML IV SCH (05:25)
[2024-12-03] MEDS: LEVOTHYROXINE 150 MCG TABLET (0.15 MG) PO SCH (06:00)
[2024-12-03] MEDS ORDERED: HOME MED LIST COMPLETE! XX SCH (07:50)
[2024-12-03 08:00] VITALS: BP 111/56; O2SAT 98
[2024-12-03 09:07] LABS: BASO # 0.1 10^3/uL (0.0-0.2); BASO % 0.6 % (0.0-1.0); EOS # 0.0 10^3/uL (0.0-0.5); EOS % 0.1 % (0.0-3.0); LYMPH # 1.0 10^3/uL (1.5-5.0); LYMPH % 11.2 % (24.0-44.0); MONO # 1.2 10^3/uL (0.0-0.8); MONO % 13.8 % (2.0-8.0); NEUTROPHILS # 6.3 10^3/uL (1.5-8.5); NEUTROPHILS % 73.7 % (36.0-66.0); PLATELET COUNT, AUTOMATED 187 10^3/uL (150-450)
[2024-12-03 09:35] LABS: CALCIUM LEVEL 7.8 MG/DL (8.5-10.1); CARBON DIOXIDE LEVEL 15 MMOL/L (20-31); CHLORIDE LEVEL 101 MMOL/L (98-107); CREATININE FOR GFR 0.78 MG/DL (0.55-1.30); GLOMERULAR FILTRATION RATE 89.1 (>51); POTASSIUM SERUM 3.9 MMOL/L (3.5-5.1); SODIUM LEVEL 142 MMOL/L (136-145)
[2024-12-03] MEDS ORDERED: GLUCAGON INJ 1 MG VIAL SC PRN (10:20)
[2024-12-03] MEDS ORDERED: DEXTROSE 50% 50 ML SYRINGE IV PRN (10:20)
[2024-12-03] MEDS ORDERED: GLUCOSE 4 GM CHEW PO PRN (10:20)
[2024-12-03] MEDS: LACTULOSE 20 GM/30 ML SYRUP UDC PO SCH (10:47)
[2024-12-03 10:54] LABS: ACETONE/KETONE > 4.50 MMOL/L (0.02-0.27)
[2024-12-03] MEDS: D10W/0.45% SODIUM CHLORIDE 1,000 ML IV SCH (11:03)
[2024-12-03 12:00] VITALS: BP 109/55; O2SAT 99
[2024-12-03 12:00] LABS: VENOUS BASE EXCESS -8.2 (-2.0-2.0); VENOUS HCO3 15.7 MMOL/L (23.0-27.0); VENOUS O2 SATURATION 94.8 % (60.0-80.0); VENOUS PARTIAL PRESSURE CO2 28.1 mmHg (38.0-50.0); VENOUS PARTIAL PRESSURE O2 82.9 mmHg (30.0-50.0); VENOUS PH 7.366 UNITS (7.330-7.430); VENOUS STANDARD HCO3 17.8 MMOL/L; VENOUS TOTAL CO2 16.6 MMOL/L (24.0-28.0)
[2024-12-03] MEDS: INSULIN LISPRO (NovoLOG) PER UNIT SC SCH (12:08)
[2024-12-03] MEDS ORDERED: LEVO150T7 PO (12:58)
[2024-12-03] MEDS: LACTULOSE 20 GM/30 ML SYRUP UDC PR ONE (13:00)
[2024-12-03 13:03] LABS: LDH LACTATE DEHYDROGENASE 484 U/L (120-246)
[2024-12-03] MEDS: HYOSCYAMINE SULFATE 0.125 MG SUBL TABLET SL SCH (14:00)
[2024-12-03] MEDS: ONDANSETRON 4MG ORAL DISINTEGRATING TAB PO SCH (14:00)
[2024-12-03] MEDS ORDERED: LACTULOSE 20 GM/30 ML SYRUP UDC PO SCH (14:00)
[2024-12-03 14:44] LABS: CALCIUM LEVEL 7.9 MG/DL (8.5-10.1); CARBON DIOXIDE LEVEL 17.0 MMOL/L (20-31); CHLORIDE LEVEL 101.0 MMOL/L (98-107); CREATININE FOR GFR 0.79 MG/DL (0.55-1.30); GLOMERULAR FILTRATION RATE 87.7 (>51); POTASSIUM SERUM 3.4 MMOL/L (3.5-5.1); SODIUM LEVEL 144.0 MMOL/L (136-145)
[2024-12-03] MEDS ORDERED: ATROPINE SULFATE 1% OPHTH SOLN 2 ML BTL SL PRN (15:00)
[2024-12-03] MEDS ORDERED: LORazepam 0.5 MG TAB PO PRN (15:00)
[2024-12-03] MEDS ORDERED: POLYVINYL ALCOHOL OPHTH SOLN 15ML (LIQUITEARS) OU PRN (15:00)
[2024-12-03] MEDS ORDERED: HALOPERIDOL 2 MG TAB PO PRN (15:00)
[2024-12-03] MEDS ORDERED: SALIVA SUBSTITUTE BTL MT PRN (15:00)
[2024-12-03] MEDS ORDERED: LOPERAMIDE 2 MG CAPLET PO PRN (15:00)
[2024-12-03] MEDS ORDERED: MIDAZOLAM INJ 2 MG/2 ML VIAL IV PRN (15:40)
[2024-12-03] MEDS: NS (Normal Saline) 0.9% 1,000 ML IV SCH (15:40)
[2024-12-03] MEDS: LIDOCAINE 1% MDV 20 ML VIAL SC SCH (15:40)
[2024-12-03] MEDS: SODIUM CHLORIDE 0.9% 1000 ML XX SCH (15:40)
[2024-12-03 15:48] VITALS: TEMP 98.9; O2SAT 100
[2024-12-03] MEDS: ceFAZolin SODIUM 2 GM in DEXTROSE 5% (D5W) ADV/MINI-BAG 50 ML IV ONE (16:41)
[2024-12-03] MEDS ORDERED: INSULIN LISPRO (NovoLOG) PER UNIT SC SCH ×2 (18:00→21:00)
[2024-12-03] MEDS: MORPHINE 10 MG/0.5 ML ORAL CONCENTRATE SOLUTION U/D SL SCH (18:49)
[2024-12-04] MEDS ORDERED: MORPHINE 10 MG/0.5 ML ORAL CONCENTRATE SOLUTION U/D SL PRN (08:50)
[2024-12-04] MEDS ORDERED: HYOSCYAMINE SULFATE 0.125 MG SUBL TABLET SL PRN (08:50)
[2024-12-04] MEDS ORDERED: MORPHINE 2 MG/ML 1 ML VIAL IV PRN (18:10)
[2024-12-04] MEDS ORDERED: ONDANSETRON 4MG 2ML VIAL IV PRN (22:00)
[2024-12-05] MEDS: MORPHINE 10 MG/0.5 ML ORAL CONCENTRATE SOLUTION U/D SL PRN (11:54)
[2024-12-05] MEDS: MORPHINE 10 MG/0.5 ML ORAL CONCENTRATE SOLUTION U/D SL SCH (15:36)
== END 2024-12-05 23:30 | disposition expired | DRG 382 ==
LOC: M ED 21:32 → M ED INP 12-03 04:13 → M MS5PR 12-03 17:40
PROVIDERS: ADMIT Family Medicine; ATTEND Internal Medicine
PROC: 0W9B30Z Drainage of Left Pleural Cavity with Drainage Device, Percutaneous Approach (ICD-10-PCS; principal; 2024-12-03 16:00)
DX: C50.911 Malignant neoplasm of unspecified site of right female breast (principal); R57.1 Hypovolemic shock; G93.41 Metabolic encephalopathy; R18.0 Malignant ascites; E43 Unspecified severe protein-calorie malnutrition; J91.0 Malignant pleural effusion; E72.20 Disorder of urea cycle metabolism, unspecified; E87.29 Other acidosis; E46 Unspecified protein-calorie malnutrition; C78.6 Secondary malignant neoplasm of retroperitoneum and peritoneum; C78.7 Secondary malignant neoplasm of liver and intrahepatic bile duct; C78.89 Secondary malignant neoplasm of other digestive organs; C79.31 Secondary malignant neoplasm of brain; C79.51 Secondary malignant neoplasm of bone; K76.82 Hepatic encephalopathy; Z66 Do not resuscitate; D63.0 Anemia in neoplastic disease; E03.9 Hypothyroidism, unspecified; J98.11 Atelectasis; D63.8 Anemia in other chronic diseases classified elsewhere; R11.2 Nausea with vomiting, unspecified; R19.7 Diarrhea, unspecified; Z90.13 Acquired absence of bilateral breasts and nipples; Z51.5 Encounter for palliative care; Z68.20 Body mass index [BMI] 20.0-20.9, adult; Z92.21 Personal history of antineoplastic chemotherapy; Z79.890 Hormone replacement therapy; Z79.899 Other long term (current) drug therapy; Z79.69 Long term (current) use of other immunomodulators and immunosuppressants